=== PATIENT | male | born 2005 | race Caucasian/White ===

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

== ENCOUNTER → 2024-10-02 | Outpatient (CLI) | payer OTHER, SELFPAY ==
--- NOTE | 2024-10-02 14:04 | RAD_ITS ---
PROCEDURE: ANKLE MIN 3 VIEWS 10/02/2024 REASON FOR EXAM: PAIN TECHNIQUE: 3 views of the left ankle COMPARISON: none FINDINGS: No acute fracture or dislocations. Mild soft tissue edema. Minimal joint effusion. No radiographic foreign body. RAD/Ankle min 3 Views IMPRESSION: No acute fracture or dislocations. Mild soft tissue edema. Minimal joint effu laura. Reading Location: [id number]
== END | disposition home or self-care (01) ==
LOC: MTRAD 14:03
PROVIDERS: PCP Family Medicine; Referring Provider Physician Assistant Surgical; Visit Provider Physician Assistant Surgical
DX: M25.572 Pain in left ankle and joints of left foot (principal)
CPT/HCPCS: 73610